=== PATIENT | female | born 1995 | race Hispanic/Latino ===

== ENCOUNTER 2023-03-30 08:17 | Emergency (ER) | payer MEDICAID, OTHER ==
[~2023-03-30] VITALS: Ht 162.6 cm; Wt 68.5 kg
[~2023-03-30 08:17] MED LIST: DOCU-116 PO; IBUP-1493 PO; PREN-196 PO; PREN1TAB89 PO
[2023-03-30] MEDS ORDERED: CEFTRIAXONE 2GM VIAL IJ ONE (11:00)
[2023-03-30] MEDS ORDERED: GUAIFENESIN 600 MG TABLET.ER PO ONE (11:00)
[2023-03-30] MEDS ORDERED: ALBUTEROL 0.083% 2.5 MG/3 ML INH IH ONE (11:00)
[2023-03-30] MEDS ORDERED: SOLU-MEDROL 125MG VIAL IM ONE (11:00)
[2023-03-30 11:17] LABS: BASOPHILS % (AUTO) 0.4 % (0.0-5.0); EOSINOPHILS % (AUTO) 0.7 % (0.0-8.0); HEMATOCRIT 40.7 % (36-48); LYMPHOCYTES % (AUTO) 16.1 % (21.0-51.0); MEAN CORPUSCULAR HEMOGLOBIN 30.7 pg (27.0-33.0); MEAN CORPUSCULAR HGB CONC 32.9 g/dL (32.0-36.0); MEAN CORPUSCULAR VOLUME 93.1 fL (79-99); MONOCYTES % (AUTO) 8.7 % (3.0-13.0); NEUTROPHILS % (AUTO) 73.9 % (40.0-77.0); PLATELET COUNT (AUTO) 245 K/uL (130-400); RED BLOOD CELL COUNT(AUTO) 4.37 MIL/uL (4.00-5.50); RED CELL DISTRIBUTION WIDTH 12.2 % (11.0-15.5); WHITE BLOOD COUNT (AUTO) 9.9 K/uL (4.8-10.8)
[2023-03-30 11:28] LABS: CREATININE 0.6 mg/dL (0.5-1.5); POTASSIUM 3.3 mmol/L (3.5-5.1)
[2023-03-30] MEDS ORDERED: CEFTRIAXONE 1G VIAL ONE (11:50)
[2023-03-30] MEDS ORDERED: ALBUHFA IH (12:15)
[2023-03-30] MEDS ORDERED: GUAI600T50 PO (12:15)
[2023-03-30] MEDS ORDERED: AMOX-427 PO (12:15)
[2023-03-30 12:51] VITALS: BP 132/78
== END 2023-03-30 12:53 | disposition home or self-care (01) ==
LOC: EDH 08:17
DX: J20.8 Acute bronchitis due to other specified organisms (principal); H66.92 Otitis media, unspecified, left ear; Z20.822 Contact with and (suspected) exposure to COVID-19
CPT/HCPCS: 99284; 96374; 71045; 87635; 80048; 85025; 87880; 87804 ×2; 81025; 36415; 96372; 94640 ×2; C9803; J2930; J0696